=== PATIENT | female | born 1975 | race African-American/Black ===

== ENCOUNTER 2020-10-09 01:28 | Emergency (ER) | payer OTHER ==
[~2020-10-09] VITALS: Ht 165.1 cm; Wt 75.8 kg
[~2020-10-09 01:28] MED LIST: IBUPROFEN 800800 MG PO; NOHOMEMEDICATIONS; NORCO 5-325 TA1 EACH PO; NORFLEX100 MG PO
[2020-10-09] MEDS ORDERED: ULTRAM 50MG TAB50 MG PO (03:51)
[2020-10-09 04:16] VITALS: BP 131/82
== END 2020-10-09 04:17 | disposition home or self-care (01) ==
LOC: ER 01:28
DX: M79.604 Pain in right leg (principal); Z98.890 Other specified postprocedural states